=== PATIENT | male | born 1980 ===

== ENCOUNTER 2023-12-19 21:26 | Emergency (ER) | payer OTHER ==
[~2023-12-19] VITALS: Ht 175.3 cm; Wt 95.3 kg
[~2023-12-19 21:26] MED LIST: CHOL400C5 PO; FOLI0.8T43 PO; GABA-532 PO; GLIP5TAB13 PO
[2023-12-19] MEDS ORDERED: OXYCODONE HCL 5 MG TABLET PO ONE (22:15)
[2023-12-19 22:33] LABS: BASOPHILS # (AUTO) 0.1 K/UL (0.0-0.2); BASOPHILS % (AUTO) 1.2 % (0.0-2.0); EOSINOPHILS # (AUTO) 0.2 K/uL (0.0-0.7); EOSINOPHILS % (AUTO) 2.1 % (0.0-7.0); HEMATOCRIT 39.3 % (36.7-47.1); HEMOGLOBIN 13.2 g/dL (12.5-16.3); LYMPHOCYTES # (AUTO) 2.2 K/uL (0.8-4.8); MEAN CORPUSCULAR HEMOGLOBIN 29.6 uug (23.8-33.4); MEAN CORPUSCULAR HGB CONC 34 g/dL (32.5-36.3); MEAN CORPUSCULAR VOLUME 88.1 fL (73.0-96.2); MONOCYTES # (AUTO) 0.6 K/uL (0.1-1.30); MONOCYTES % (AUTO) 7.4 % (0.0-11.0); NEUTROPHILS # (AUTO) 5.3 K/uL (1.8-8.9); NEUTROPHILS % (AUTO) 63.3 % (38.5-71.5); PLATELET COUNT (AUTO) 235 K/uL (152-348); RED BLOOD CELL COUNT(AUTO) 4.46 MIL/uL (4.06-5.63); RED CELL DISTRIBUTION WIDTH 16.1 % (12.1-16.2); WHITE BLOOD COUNT (AUTO) 8.4 K/uL (3.6-10.2)
[2023-12-19 22:38] LABS: DIFFERENTIAL COMMENT 1
[2023-12-19] MEDS ORDERED: OXYCODONE HCL 5 MG TABLET ONE (22:39)
[2023-12-19 22:41] LABS: ERYTHROCYTE SEDIMENTATION RATE 61 MM/HR (0-15)
[2023-12-19 22:58] LABS: CALCIUM 7.5 mg/dL (8.5-10.1); CREATININE 4.3 mg/dL (0.6-1.3); POTASSIUM 3.8 mmol/L (3.5-5.1)
[2023-12-19 23:04] LABS: BILIRUBIN,TOTAL 0.2 mg/dL (0.2-1.0); TOTAL PROTEIN, SERUM 8.4 g/dL (6.4-8.2)
[2023-12-19 23:29] LABS: C-REACTIVE PROTEIN 0.62 mg/dL (0.00-0.30)
[2023-12-20] MEDS ORDERED: CEFTRIAXONE 1 G in IV DEXTROSE 5% 50 ML IV ONE (00:30)
[2023-12-20] MEDS ORDERED: CEFTRIAXONE 1 G VIAL ONE (00:51)
[2023-12-20 02:51] VITALS: BP 144/94; TEMP 97.8; O2SAT 97
== END 2023-12-20 02:53 | disposition short-term general hospital (02) ==
LOC: ER 21:26
DX: L03.116 Cellulitis of left lower limb (principal); L03.115 Cellulitis of right lower limb; N18.6 End stage renal disease; E11.22 Type 2 diabetes mellitus with diabetic chronic kidney disease; Z99.2 Dependence on renal dialysis; Z98.890 Other specified postprocedural states; Z79.899 Other long term (current) drug therapy; Z60.2 Problems related to living alone
CPT/HCPCS: 99285; 80053; 83735; 85025; 85651; 86140; 36415; 73590; 96365; J0696; A4606; A4663